=== PATIENT | male | born 1955 | race Caucasian/White ===

== ENCOUNTER 2017-08-09 07:56 | Outpatient (CLI) | payer BC ==
--- NOTE | ~2017-08-09 | HEMODYNAMI ---
PATIENT:VOLODYMYR VARGAS MEDICAL RECORD: [id number] : 59 LOCATION:[facility] ADMISSION DATE: 08/09/17 Generatedon:08/09/201710:22 Patient name: VOLODYMYR VARGAS Patient #: [id number] SSN: : 1955 Date of study: 08/09/2017 Page: Of Hemodynamic Procedure Report Patient Data Patient Demographics Procedure consent was obtained First Name: VOLODYMYR Gender: Male Last Name: ALICIA : 1955 Middle Initial: FERNANDA Age: 62 year(s) Patient #: [id number] Race: Additional ID: [id number] Contact details Address: [address] [place] [address] State: [place] City: [place] Zip code: [address] Past Medical History Allergies: No known allergies Admission Admission Data Admission Date: 08/09/2017 Admission Time: 7:56 Procedure Procedure Types Cath Procedure Diagnostic Procedure LHC LHC w/Coronaries PCI Procedure Coronary Stent Initial Coronary Stent Initial x2 Miscellaneous Procedures Moderate Sedation up to 30 minutes Procedure Description Procedure Date Procedure Date: 08/09/2017 Procedure Start Time: 9:58 Procedure End Time: 10:21 Procedure Staff Name Function Dm Vu MD Performing Physician Sue Ibarra RT Scrub Jett Alcaraz RN Nurse Titi Jim RT Monitor Abran Armstrong RN Nurse Procedure Data Cath Procedure Fluoroscopy Diagnostic fluoroscopy Total fluoroscopy Time: 5.5 time: 5.5 min min Diagnostic fluoroscopy Total fluoroscopy dose: dose: 2402 mGy 2402 mGy Contrast Material Contrast Material Type Amount (ml) Isovue 300 184 Entry Location Entry Primary Successful Side Size Upsize Upsize Entry Closure Fierro ccessful Closure Location (Fr) 1 (Fr) 2 (Fr) Remarks Device Remarks Radial Right 6 Fr Mechanical artery Short Compression Estimated blood loss: 10 ml Diagnostic catheters Device Type Used For End Catheter Placement Diagnostic Terumo 5Fr Procedure Boyle 110cm catheter Procedure Complications No complications Procedure Medications Medication Administration Route Dosage 0.9% NaCl I.V. 100 ml/hr Oxygen NC 2 l/min Heparin Flush Bag added to field 2 bags (1000units/500ml NS) Lidocaine 2% added to field 20 Versed I.V. 1 mg Fentanyl I.V. 50 mcg Fentanyl I.V. 50 mcg Radial Cocktail added to field 1 syringe (Verapomil 2mg/Nitro 400mcg/Heparin 1500units) Radial Cocktail I.A. 1 syringe (Verapomil 2mg/Nitro 400mcg/Heparin 1500units) Heparin Bolus I.V. 4000 units Integrilin (Bolus I.V. 11.7 ml 2mg/ml) Integrilin (Bolus wasted 8.3 ml 2mg/ml) Plavix P.O. 600 mg Hemodynamics Rest Heart Rate: 64 (bpm) Snapshots Pre Cath Intra NCS Post Cath Vital Signs Time Heart Resp SPO2 etCO2 NIBP (mmHg) Rhythm Pain Sedation Rate (ipm) (%) (mmHg) Status Level (bpm) 9:53:53 67 16 100 39.5 162/100(135) NSR 0 (11) 10(A) , No pain 9:58:42 70 15 100 40.3 156/99(126) NSR 0 (11) 10(A) , No pain 10:03:29 73 16 96 43.3 132/84(102) NSR 0 (11) 10(A) , No pain 10:08:11 74 16 96 36.6 145/92(116) NSR 0 (11) 10(A) , No pain 10:12:56 72 13 97 38.1 150/89(109) NSR 0 (11) 10(A) , No pain 10:17:41 69 15 99 41.8 150/81(105) NSR 0 (11) 10(A) , No pain Medications Time Medication Route Dose Verified Delivered Reason Note s Effectiveness by by 9:55:25 0.9% NaCl I.V. 100 Abran Abran Per physician ml/hr Nathaniel Armstrong RN RN 9:55:37 Oxygen NC 2 l/min Abran Abran Per physician Nathaniel Armstrong RN RN 9:55:55 Heparin Flush added 2 bags Abran Abran used for Bag to Nathaniel Armstrong procedure (1000units/500ml [facility] RN RN NS) 9:56:09 Lidocaine 2% added 20ml Abran Abran for local to vial Nathaniel Armstrong anesthetic field SAWANT RN 9:56:30 Versed I.V. 1 mg Abran Abran for sedation Nathaniel Armstrong RN RN 9:56:40 Fentanyl I.V. 50 mcg Abran Abran for sedation Nathaniel Armstrong RN RN 9:58:26 Fentanyl I.V. 50 mcg Abran Abran for sedation Nathaniel Armstrong RN RN 9:59:37 Radial Cocktail added 1 Abran Abran for (Verapomil to syringe Nathaniel Armstrong vasodilation 2mg/Nitro RN RN 400mcg/Heparin 1500units) 10:00:19 Radial Cocktail I.A. 1 Abran Dm for (Verapomil syringe Nathaniel Vu MD vasodilation 2mg/Nitro RN 400mcg/Heparin 1500units) 10:07:13 Heparin Bolus I.V. 4000 Abran Dm for units Nathaniel Vu MD anticoagulation RN 10:07:31 Integrilin I.V. 11.7 ml Abran Chaidez for (Bolus 2mg/ml) Nathaniel Vu MD antiplatelet RN therapy 10:07:56 Integrilin wasted 8.3 ml Abran Dm to sharp's (Bolus 2mg/ml) Nathaniel Vu MD RN 10:20:22 Plavix P.O. 600 mg Abran Chaidez for Nathaniel Vu MD antiplatelet RN therapy Procedure Log Time Note 9:32:19 Titi Jim RT(R) sent for patient. Start room use. 9:32:20 Time tracking: Regular hours 9:32:24 Plan of Care:Hemodynamics will remain stable., Cardiac rhythm will remain stable., Comfort level will be maintained., Respiratory function will remain adequate., Patient/ family verbilizes understanding of procedure., Procedure tolerated without complication., Recovers from procedure without complications.. 9:33:10 H&P Date Dictated: 08/05/2017 Within 30 days and on chart., H&P Addendum completed by physician on day of procedure. (MUST COMPLETE FOR ALL OUTPATIENTS). 9:41:16 Patient received from Pre/Post Procedure Room to CCL 1 Alert and oriented. Tansferred to table in Supine position. 9:41:18 Warm blankets applied, and karen hugger turned on for patient comfort. 9:41:18 Correct patient and procedure confirmed by team. 9:41:20 Signed procedure consent form obtained from patient. 9:41:21 ECG and BP/O2 sat monitors applied to patient. 9:52:50 Vital chart was started 9:52:51 Baseline sample Acquired. 9:52:55 Rhythm: sinus rhythm 9:52:57 Full Disclosure recording started 9:52:59 Pre-procedure instructions explained to patient. 9:53:00 Pre-op teaching completed and patient verbalized understanding. 9:53:02 Family in patients room. 9:53:03 Patient NPO since Midnight. 9:53:05 Is the patient allergic to Iodine/contrast media? No. 9:53:06 Is patient on blood thinner?No 9:53:08 Patient diabetic? No. 9:53:10 Previous problem with sedation/anesthesia? No ? 9:53:12 Snore? Yes 9:53:13 Sleep apnea? No 9:53:14 Deviated septum? No 9:53:15 Opens mouth fully? Yes 9:53:16 Sticks out tongue? Yes 9:53:18 Airway obstruction? No ? 9:53:22 Dentures? Yes partial in 9:53:36 Pre procedure: right dorsailis pedis pulse 1+ Palpable, but thready & weak; easily obliterated 9:53:38 Modified Bhavin's test Ulnar < 7 seconds 9:53:41 Patient pain scale 0/10 ?. 9:53:50 IV patent on arrival in left hand with 0.9% NaCl at O. 9:53:52 Lab results completed and on chart. 9:53:55 Right Radial & Right Groin area was prepped with chlora-prep and draped in sterile fashion 9:53:56 Alarms reviewed by R. N. 9:53:57 Sharps counted by scrub and verified by R.N. 9:54:29 --------ALL STOP TIME OUT------ 9:54:30 Final Timeout: patient, procedure, and site verified with staff and physician. All members of the team are in agreement. 9:54:32 Right Radial & Right Groin site verified by team. 9:54:36 Physical assessment completed. ASA score P 2 - A patient with mild systemic disease as per Dm Vu MD. 9:54:40 Sedation plan: IV Moderate Sedation Versed, Fentanyl 9:55:25 0.9% NaCl 100 ml/hr I.V. was administered by Abran Armstrong RN; Per physician; 9:55:27 Use device set Radial Dx 9:55:33 Acist Hand Control opened to sterile field. 9:55:33 Acist Manifold opened to sterile field. 9:55:33 Tegaderm 4 x 4 opened to sterile field. 9:55:35 Acist Syringe opened to sterile field. 9:55:35 Medline Cath Pack opened to sterile field. 9:55:36 Bag Decanter opened to sterile field. 9:55:36 Terumo 6Fr Slender Glidesheath opened to sterile field. 9:55:36 St Ike 260cm J .035 wire opened to sterile field. 9:55:37 Oxygen 2 l/min NC was administered by Abran Armstrong RN; Per physician; 9:55:37 MBrace Wrist Support opened to sterile field. 9:55:55 Heparin Flush Bag (1000units/500ml NS) 2 bags added to field was administered by Abran Armstrong RN; used for procedure; 9:56:09 Lidocaine 2% 20ml vial added to field was administered by Abran Armstrong RN; for local anesthetic; 9:56:30 Versed 1 mg I.V. was administered by Abran Armstrong RN; for sedation; 9:56:40 Fentanyl 50 mcg I.V. was administered by Abran Armstrong RN; for sedation; 9:58:11 Procedure started. 9:58:15 Local anesthetic to right radial artery with Lidocaine 2% by Dm Vu MD.INITIAL ACCESS ONLY 9:58:26 Fentanyl 50 mcg I.V. was administered by Abran Armstrong RN; for sedation; 9:59:37 Radial Cocktail (Verapomil 2mg/Nitro 400mcg/Heparin 1500units) 1 syringe added to field was administered by Abran Armstrong RN; for vasodilation; 9:59:40 A 6 Fr Short sheath was inserted into the Right Radial artery 9:59:53 A Diagnostic Terumo 5Fr Boyle 110cm catheter was advanced over the wire and used for Procedure. 10:00:19 Radial Cocktail (Verapomil 2mg/Nitro 400mcg/Heparin 1500units) 1 syringe I.A. was administered by Dm Vu MD; for vasodilation; 10:00:48 LV angiography performed. 10:00:49 LV gram done using AVALOS 10:00:54 EF : 55 % 10::07 Injector settings: Ml/sec: 7, Volume: 15, 10:01:23 LCA angiography performed. 10:04:14 RCA angiography performed. 10:04:15 Catheter removed. 10:04:29 Cordis 6FR XB 3.5 guide catheter opened to sterile field. 10:04:38 6 Fr XB 3.5 guide catheter was inserted over the wire 10:04:50 Merit BasixCompak Inflation Kit opened to sterile field. 10:04:51 GET Holding NV PT Graphix J 300cm 0.014 guide wire opened to sterile field. 10:05:17 Study PCI Site: [place] mLAD has 90% stenosis. 10:05:20 ACC Pre-intervention KAE Flow is 3. 10:06:36 Study PCI Site: [place] mCirc has 80% stenosis. 10:06:40 ACC Pre-intervention KAE Flow is 3. 10:07:04 PT Graphix wire advanced. 10:07:13 Heparin Bolus 4000 units I.V. was administered by Dm Vu MD; for anticoagulation; 10:07:27 Wire advanced across lesion. 10:07:31 Integrilin (Bolus 2mg/ml) 11.7 ml I.V. was administered by Dm Vu MD; for antiplatelet therapy; 10:07:41 Inflation Number: 1 A Dex OTW 3.0 x 15 stent was prepped and advanced across the Mid CX. The stent was deployed at 15 BETH for 0:10 (min:sec). 10:07:49 Inflation number: 2 The stent balloon was then re-inflated across the Mid CX to 15 BETH for 0:10 (min:sec). 10:07:56 Integrilin (Bolus 2mg/ml) 8.3 ml wasted was administered by Dm Vu MD; to sharp's; 10:08:00 Stent catheter was removed intact over wire. 10:09:18 Wire redirected to LAD. 10:09:43 Inflation Number: 1 A Elon OTW 4.0 x 12 stent was prepped and advanced across the Mid LAD. The stent was deployed at 15 BETH for 0:10 (min:sec). 10:10:31 Inflation number: 2 The stent balloon was then re-inflated across the Mid LAD to 15 BETH for 0:10 (min:sec). 10:11:43 Stent catheter was removed intact over wire. 10:11:52 Study PCI Site: [place] LMCA has 80% stenosis. 10:11:57 ACC Pre-intervention KAE Flow is 3. 10:13:27 Inflation Number: 1 A Dex OTW 4.0 x 08 stent was prepped and advanced across the LMCA. The stent was deployed at 17 BETH for 0:10 (min:sec). 10:14:10 Stent catheter was removed intact over wire. 10:14:11 Wire removed. 10:14:12 Guide catheter removed. 10:14:39 Terumo TR Band Standard opened to sterile field. 10:14:49 Sheath removed intact; hemostasis achieved with Mechanical Compression to the Right Radial artery. 10:14:51 Procedure ended.(Physican Out) 10:15:06 Fluoroscopy time 05.50 minutes. 10:15:10 Fluoroscopy dose: 2402 mGy 10:15:10 Flurop Dose total: 2402 10:15:16 Contrast amount:Isovue 300 184ml. 10:15:18 Sharps counted by scrub and verified by R.N. 10:15:19 Insertion/operative site no bleeding no hematoma. 10:15:27 TR band inflated with 12cc of air. 10:15:29 Post Procedure Pulses reassessed and unchanged 10:15:31 Post-procedure physical assessment completed. ASA score P 2 - A patient with mild systemic disease as per Dm Vu MD. 10:15:34 Post procedure rhythm: unchanged. 10:15:37 Estimated blood loss: 10 ml 10:15:38 Post procedure instruction explained to patient.Patient verbalizes understanding. 10:15:39 Patient needs reinforcement of post procedure teaching. 10:16:03 Procedure type changed to Cath procedure, Diagnostic procedure, LHC, LHC w/Coronaries, PCI procedure, Coronary Stent Initial, Coronary Stent Initial x2, Miscellaneous Procedures, Moderate Sedation up to 30 minutes 10:16:07 Procedure Complication : No complications 10:16:37 Procedure and supply charges have been captured, reviewed, submitted and are correct. 10:20:22 Plavix 600 mg P.O. was administered by Dm Vu MD; for antiplatelet therapy; 10:21:07 Vital chart was stopped 10:21:07 See physician's report for complete and final results. 10:21:09 Report given to Pre/Post Procedure Room. 10:21:13 Patient transfered to Pre/Post Procedure Room with Stretcher. 10:21:16 Procedure ended. 10:21:16 Full Disclosure recording stopped 10:21:40 End room use (Document Last) Intervention Summary Intervention Notes Time ActionType Lesion and Equipment Action# Pressure Duration Attributes Used 10:07:41 Place stent Mid CX Elon OTW 1 15 00:10 3.0 x 15 stent 10:07:49 Reinflate Mid CX Dex OTW 2 15 00:10 stent 3.0 x 15 balloon stent 10:09:43 Place stent Mid LAD Elon OTW 1 15 00:10 4.0 x 12 stent 10:10:31 Reinflate Mid LAD Dex OTW 2 15 00:10 stent 4.0 x 12 balloon stent 10:13:27 Place stent LMCA Dex OTW 1 17 00:10 4.0 x 08 stent Device Usage Item Name Manufacture Quantity Catalog Number Hospital Part Current Mini mal Lot# / Charge Number Stock Stock Serial# Code Acist Hand Acist 1 24531 168418 308573 705451 5 Control [employer] Inc Acist Acist 1 45983 957380 813146 943453 5 Manifold Medical [employer] Inc Tegaderm 4 3M 1 1626W 302804 142484 572189 5 x 4 Acist Acist 1 01792 649177 957780 689533 20 Syringe Medical Systems Inc Medline Cardinal 1 [id number] 330809 41345 311068 5 Cath Pack Health Bag Microtek 1 2001S 814277 35119 788229 5 Dada Inc. Terumo 6Fr Terumo 1 [id number] 058846 812040 819856 [address] Ike St Ike 1 869965 244102 200726 597164 30 260cm J .035 wire MBrace Advanced 1 140-0250-00 312501 18734 760064 5 Wrist Vascular Support Dynamics Diagnostic Terumo 1 47-9569 919071 179373 442382 5 Terumo 5Fr Boyle 110cm catheter Cordis 6FR Cardinal 1 [id number] 248296 042691 115624 2 XB 3.5 Health guide catheter [facility] Merit 1 [id number] 251018 747565 311578 15 BasixCompak Medical Inflation Kit Elon OTW Medtronic 1 [id number] 066821 040413 016147 5 [id number] 3.0 x 15 stent Elon OTW Medtronic 1 [id number] 826415 4495532 576047 5 [id number] 4.0 x 12 stent [place] Sci [place] 1 [id number] 345401 865410 908462 5 PT Mozidoix Medafor J 300cm 0.014 guide wire Dex OTW Medtronic 1 [id number] 755364 1575713 341572 5 [id number] 4.0 x 08 stent Terumo TR Terumo 1 [id number] 060744 471310 551177 40 Band Standard Signature Audit Guild Stage Time Signature Unsigned Intra-Procedure 08/09/2017 Titi Jim 10:22:20 AM RT(R) Signatures Monitor : Titi Jim RT Signature : Date : Time : [id number] [place] [address]
[~2017-08-09 07:56] MED LIST: ACETAMINOPHEN500 M1 PO; BAYER CHEWABLE81 MG PO; COREG25 MG PO; PLAVIX75 MG PO; PRINIVIL10 MG PO
[2017-08-09] MEDS ORDERED: HYDRALAZINE HCL25 MG PO (08:31)
[2017-08-09] MEDS ORDERED: ZOCOR10 MG PO (08:32)
[2017-08-09] MEDS ORDERED: VASOTEC20 MG PO (08:32)
[2017-08-09 08:42] VITALS: BP 159/88; BMI 37.3
[2017-08-09 09:03] LABS: BASOPHILS 0.3 % (0-2); EOSINOPHILS 2.5 % (0-7); HEMATOCRIT 40.4 % (42.0-54.0); HEMOGLOBIN 13.6 g/dL (13.5-17.5); IMMATURE GRANULOCYTES 0.2 % (0-5); LYMPHOCYTES 27.5 % (15-50); MCH 30.8 pg (26.0-34.0); MCHC 33.7 g/dL (31.0-37.0); MCV 91.6 fL (80.0-100.0); MEAN PLATELET VOLUME 10.2 fL (7.4-10.4); MONOCYTES 7.7 % (2-11); NEUTROPHILS 61.8 % (40-80); PLATELET COUNT 187 10x3/uL (130-400); RBC 4.41 10x6/uL (4.20-6.10); RDW 13.8 % (11.5-14.5); WBC 6.4 10x3/uL (4.8-10.8)
[2017-08-09 09:10] LABS: ANION GAP 13.4 mmol/L (8-16); CALCIUM 8.9 mg/dL (8.5-10.1); CARBON DIOXIDE 25.7 mmol/L (21.0-32.0); CREATININE - SERUM 1.4 mg/dL (0.6-1.3); POTASSIUM - SERUM 4.1 mmol/L (3.5-5.1)
[2017-08-09] MEDS ORDERED: PLAVIX75 MG PO (10:30)
--- NOTE | 2017-08-09 11:10 | NUR ---
PATIENT C/O NAUSEA. V/O FROM DR. VARELA FOR ZOFRAN 4MG IV. GIVEN PER ORDER AND WILL MONITOR FOR EFFECTIVENESS. DENIES CHEST PAIN, NO EKG CHANGES.
--- NOTE | 2017-08-09 11:32 | NUR ---
1115 SITTING UP EATING TURKEY SANDWICH AND SODA WITH NO NAUSEA. NO C/O CHEST PAIN. PULSES PALP X 4. R WRIST TR BAND C/D/I W NO HEMATOMA OR BLEEDING. FAMILY REMAINS AT BEDSIDE.
--- NOTE | 2017-08-09 13:20 | NUR ---
1215 RESTING WITH EYES CLOSED, ROOM AIR W NO RESP. DISTRESS. ALL VITALS WNL. R WRIST TR BAND C/D/I W NO HEMATOMA OR BLEEDING. FAMILY REMAINS AT SIDE. 1315 TAUTH AT BEDSIDE TO DISCUSS PROCEDURE FINDINGS. 2CC AIR REMOVED FROM R WRIST TR BAND. WILL MONITOR FOR BLEEDING.
--- NOTE | 2017-08-09 13:39 | NUR ---
2CC AIR REMOVED FROM R WRIST TR BAND. WILL CONTINUE TO MONITOR FOR BLEEDING.
--- NOTE | 2017-08-09 14:02 | NUR ---
PIV REMOVED FROM LEFT HAND WITH BANDAID APPLIED. ANOTHER 2CC REMOVED FROM R WRIST TR BAND. UP TO BEDSIDE TO DRESS WITH ASSIST FROM .
--- NOTE | 2017-08-09 14:19 | NUR ---
TR BAND WEANED, REMOVED...APPLIED TEGADERM AND 2X2 APPLIED. BRACE RE-APPLIED. D/C INSTRUCTIONS DISCUSSED WITH PATIENT AND AT BEDSIDE. WHEELED OUT VIA WHEELCHAIR BY CATH TEAM.
--- NOTE | 2017-08-10 16:42 | OP ---
PATIENT NAME: VOLODYMYR VARGAS MEDICAL RECORD: [id number] :59 LOCATION:D.CAT ADMISSION DATE: SURGEON: MARY VARELA MD DATE OF OPERATION: 08/09/2017 PROCEDURES: 1. PTCA stent left main. 2. PTCA stent left circumflex. 3. PTCA stent LAD. 4. Left heart catheterization. 5. Selective coronary angiography. 6. Left ventriculogram. INDICATION: Angina and coronary artery disease. PROCEDURE IN DETAIL: After informed consent was obtained and after a detailed explanation of the risks, benefits as well as alternative therapies, the patient elected to proceed with angiogram and angioplasty. The right radial area was prepped and draped in normal sterile fashion. The right radial artery was cannulated via modified Seldinger technique with placement of 6-Japanese sheath. All catheters exchanged through this sheath. FINDINGS: Left ventriculogram was performed in standard 30-degree AVALOS view, reveals preserved cardiac wall motion, ejection fraction 35%. SELECTIVE CORONARY ANGIOGRAPHY: 1. Right coronary artery is chronically totally occluded. Distal right coronary fills via right to right collaterals, unchanged from previous angiography. 2. The left main has 80% stenosis. 3. The left circumflex has 80% stenosis. 4. The left anterior descending has 80% stenosis. PTCA STENT OF THE LEFT MAIN, LAD, AND CIRCUMFLEX: The circumflex was addressed with a 3.0 x 15 mm Dex, LAD with a 4.0 x 12 mm Dex, and left main with a 4.0 x 8 mm Dex. Result was 0% residual throughout. OVERALL IMPRESSION: Successful percutaneous transluminal coronary angioplasty stent of the left main, LAD, and circumflex going from 80% initial stenosis to 0% residual. TRANSINT:[id number] Voice Confirmation ID: [id number] DOCUMENT ID: [id number] MARY VARELA MD at 1642 CC: [id number] DICTATION DATE: 08/09/17 1021 DRYER AND WASHER MECHANIC: 08/09/17 1211 DEP CLI 08/09/[address] [facility] [address] [id number]
== END 2017-08-09 14:23 | disposition home or self-care (01) ==
LOC: D.CATH 07:56
PROVIDERS: Internal Medicine Interventional Cardiology
DX: I25.119 Atherosclerotic heart disease of native coronary artery with unspecified angina pectoris (principal); R06.00 Dyspnea, unspecified; I10 Essential (primary) hypertension; Z01.812 Encounter for preprocedural laboratory examination

== ENCOUNTER → 2018-06-29 13:38 | Outpatient (CLI) | payer BC ==
[~2018-06-29 13:38] MED LIST changes: +GLUCOPHAGE500 MG PO; +HYDRALAZINE HCL25 MG PO; +PRINZIDE 20/12.1 TA1 PO; +VASOTEC20 MG PO; +ZOCOR10 MG PO; +ZOCOR20 MG PO
== END | disposition home or self-care (01) ==
LOC: D.CT 13:38
DX: R06.00 Dyspnea, unspecified (principal); R79.1 Abnormal coagulation profile

== ENCOUNTER 2018-07-01 08:07 | Outpatient (CLI) | payer BC ==
[~2018-07-01] VITALS: Ht 188 cm; Wt 131.8 kg
--- NOTE | ~2018-07-01 | OP ---
PATIENT NAME: VOLODYMYR VARGAS MEDICAL RECORD: [id number] :59 LOCATION:D.CAT ADMISSION DATE: SURGEON: MARY VARELA MD DATE OF OPERATION: 07/01/2018 PROCEDURES: 1. PTCA stent left circumflex. 2. PTCA, LAD. 3. Left heart catheterization. 4. Selective coronary angiography. 5. Left ventriculogram. INDICATION: Angina and coronary artery disease. PROCEDURE IN DETAIL: After informed consent was obtained and after a detailed description of risks, benefits as well as alternative therapies, the patient elected to proceed with angiogram and angioplasty. The right radial area was prepped and draped in normal sterile fashion. Right radial artery was cannulated via modified Seldinger technique with placement of 6-Vietnamese sheath. All catheters exchanged through this sheath. FINDINGS: The left ventriculogram was performed in standard 30-degree AVALOS view, reveals good cardiac wall motion throughout all segments. Overall ejection fraction estimated 60%. SELECTIVE CORONARY ANGIOGRAPHY: 1. Left main has previously placed stent. This is widely patent. 2. Left anterior descending has previously placed stents, these are widely patent. 3. The left circumflex has 80% stenosis at the ostium. 4. The right coronary artery has chronic total occlusion distally. Distal right coronary fills via left to right collaterals. PTCA STENT OF THE CIRCUMFLEX: The stent used was a 3.5 x 8 mm Cornucopia. This caused plaque shift into the LAD. The LAD was ballooned with a 3.5 balloon. Result was 0% residual throughout. OVERALL IMPRESSION: Successful percutaneous transluminal coronary angioplasty stent of the left circumflex going from 80% ostial stenosis to 0% residual stenosis. TRANSINT:[id number] Voice Confirmation ID: [id number] DOCUMENT ID: [id number] MARY VARELA MD at 1616 CC: [id number] DICTATION DATE: 07/01/18 1031 DIRECTOR CHANNEL: 07/01/18 1103 DEP CLI 07/01/[address] [address]
--- NOTE | ~2018-07-01 | EC ---
PATIENT:VOLODYMYR VARGAS DATE OF SERVICE: 07/01/18 SEX: M MEDICAL RECORD: [id number] DATE OF : 59 LOCATION:D.CAT AGE OF PATIENT: 63 ADMISSION DATE: 07/01/18 REFERRING PHYSICIAN: INTERPRETING PHYSICIAN: MARY VARELA MD ECHOCARDIOGRAM REPORT ECHO CHARGES Date: CLINICAL DIAGNOSIS: ECHOCARDIOGRAPHIC MEASUREMENTS (adult normal given) AC root (d.<3.7cm) cm LV Septum d (<1.2 cm> cm Valve Excursion cm LV Septum (systole) cm Left Atria (s.<4.0cm> cm LVPW d(<1.2cm) cm RV (d.<2.3cm) cm LVPW (sytole) cm LV diastole(<5.6CM) cm MV E-F(>70mm/sec) cm LV systole cm LVOT Diameter cm MV exc.(>10mm) cm Est.ejection fraction (50-75%) % DOPPLER: LVIT cm/sec A cm/sec E cm/sec LA cm/sec RVSP mmHg LVOT cm/sec AOP1/2T m/s Asc. Ao cm/sec RVOT cm/sec RA cm/sec PA cm/sec AV Gradient Peak mmHg AV Mean mmHg AV Area cm MV Gradient Peak mmHg MV Mean mmHg MV Area cm COMMENTS: Test Carrier: Gas Appliance Adjuster: STAN# Pericardial Effusion DATE OF SERVICE: PROCEDURE: Echocardiogram. FINDINGS: 1. Left ventricular chamber size is mildly dilated. Left ventricular systolic function is normal. Overall ejection fraction estimated at 55%. 2. Left atrium, right atrium, and right ventricle chamber sizes are within normal limits. 3. Valvular structures have normal structure and motion. ECHOCARDIOGRAM REPORT [id number] VOLODYMYR VARGAS 4. Doppler interrogation reveals only mild mitral regurgitation, no other valvular insufficiency or stenosis and pulmonary systolic pressure is normal estimated at 27 mmHg. 5. No evidence of pericardial effusion or left ventricular thrombus. TRANSINT:[id number] Voice Confirmation ID: [id number] DOCUMENT ID: [id number] MARY VARELA MD at 1616 CC: [id number] DICTATION DATE: 07/01/18 1158 RIGGING SUPERVISOR: 07/01/18 1159 DEP CLI 07/01/18 [address] [place] [address]
--- NOTE | ~2018-07-01 | HEMODYNAMI ---
PATIENT:VOLODYMYR VARGAS MEDICAL RECORD: [id number] : 59 LOCATION:[facility] ADMISSION DATE: 07/01/18 Generatedon:07/01/201810:30 Patient name: VOLODYMYR VARGAS Patient #: [id number] SSN: : 1955 Date of study: 07/01/2018 Page: Of Hemodynamic Procedure Report Patient Data Patient Demographics Procedure consent was obtained First Name: VOLODYMYR Gender: Male Last Name: ALICIA : 1955 [facility] Initial: FERNANDA Age: 63 year(s) Patient #: [id number] Race: Additional ID: [id number] Contact details Address: [place] [address] State: [place] City: [place] Zip code: [address] Past Medical History Allergies: No known allergies Admission Admission Data Admission Date: 07/01/2018 Admission Time: 8:07 Lab Results Lab Result Date: 07/01/2018 Lab Result Time: 0:00 Biochemistry Name Units Result Min Max BUN mg/dl 16 --(---*)-- 7 18 Creatinine mg/dl 1.4 --(----)*- 0.6 1.3 CBC Name Units Result Min Max Hemoglobin g/dl 12.8 -*(----)-- 13.5 17.5 Procedure Procedure Types Cath Procedure Diagnostic Procedure [facility] w/Coronaries PCI Procedure Coronary Stent Coronary Stent Initial PTCA PTCA Initial Procedure Description Procedure Date Procedure Date: 07/01/2018 Procedure Start Time: 10:09 Procedure End Time: 10:27 Procedure Staff Name Function Dm Vu MD Performing Physician Milagros Story RT Monitor Edna Hdz RT Scrub Ismael Harvey RN Nurse Procedure Data Cath Procedure Fluoroscopy Diagnostic fluoroscopy Total fluoroscopy Time: 4.7 time: 4.7 min min Diagnostic fluoroscopy Total fluoroscopy dose: dose: 1934 mGy 1934 mGy Contrast Material Contrast Material Type Amount (ml) Isovue 300 87 Entry Location Entry Primary Successful Side Size Upsize Upsize Entry Closure Fierro ccessful Closure Location (Fr) 1 (Fr) 2 (Fr) Remarks Device Remarks Radial Right 6 Fr Mechanical artery Short Compression Estimated blood loss: 5 ml Diagnostic catheters Device Type Used For End Catheter Placement DIAGNOSTIC Sutton 110cm 5 Multi-vessel Fr catheter ([id number]) Angiography Procedure Complications No complications Procedure Medications Medication Administration Route Dosage Oxygen etCO2 Nasal cannula 2 l/min Heparin Flush Bag added to field 2 bags (1000units/500ml NS) 0.9% NaCl I.V. 100 ml/hr Radial Cocktail added to field 1 syringe (Verapomil 2mg/Nitro 400mcg/Heparin 1500units) Fentanyl I.V. 50 mcg Versed I.V. 1 mg Fentanyl I.V. 50 mcg Versed I.V. 1 mg Radial Cocktail I.A. 1 syringe (Verapomil 2mg/Nitro 400mcg/Heparin 1500units) Heparin Bolus I.V. 4000 units Hemodynamics Rest HGB: 12.8 (g/dl) Heart Rate: 65 (bpm) Pressure Samples Time Site Value (mmHg) Purpose Heart Use Rate(bpm) 10:11 LV 119/24,23 Snapshot 99 Snapshots Pre Cath Intra NCS Post Cath Vital Signs Time Heart Resp SPO2 etCO2 NIBP (mmHg) Rhythm Pain Sedation Rate (ipm) (%) (mmHg) Status Level (bpm) 9:57:57 64 16 97 36.8 154/97(131) NSR 0 (11) 10(A) , No pain 10:02:15 65 16 100 36.8 154/98(133) NSR 0 (11) 10(A) , No pain 10:06:33 70 17 95 42.8 150/96(130) NSR 0 (11) 10(A) , No pain 10:10:53 67 16 94 36 143/88(118) NSR 0 (11) 10(A) , No pain 10:15:09 74 17 92 18 134/85(103) NSR 0 (11) 9(A) , No pain 10:19:20 72 17 94 36 133/88(107) NSR 0 (11) 9(A) , No pain 10:23:35 71 16 95 32.3 136/86(104) NSR 0 (11) 9(A) , No pain 10:27:48 72 17 97 41.3 133/83(113) NSR 0 (11) 9(A) , No pain Medications Time Medication Route Dose Verified Delivered Reason Not es Effectiveness by by 9:58:48 Oxygen etCO2 2 l/min Dm Guevara Per physician Nasal Mirella Harvey RN cannula 9:58:55 Heparin Flush added 2 bags Dm Guevara used for Bag to Mirella Harvey RN procedure (1000units/500ml field NS) 9:59:04 0.9% NaCl I.V. 100 Dm Guevara Per physician ml/hr Mirella Harvey RN 9:59:14 Radial Cocktail added 1 Dm Guevara used for (Verapomil to syringe Mirella Harvey RN procedure 2mg/Nitro field 400mcg/Heparin 1500units) 10:07:49 Fentanyl I.V. 50 mcg Dm Guevara for sedation Mirella Harvey RN 10:07:55 Versed I.V. 1 mg Dm Guevara for sedation Mirella Harvey RN 10:11:34 Fentanyl I.V. 50 mcg Dm Guevara for sedation Mirella Harvey RN 10:11:38 Versed I.V. 1 mg Dm Guevara for sedation Mirella Harvey RN 10:11:49 Radial Cocktail I.A. 1 Dm Chaidez for (Verapomil syringe Mirella Vu MD vasodilation 2mg/Nitro 400mcg/Heparin 1500units) 10:18:29 Heparin Bolus I.V. 4000 Dm Chaidez for units Mirella Vu MD anticoagulation Procedure Log Time Note 9:31:03 Ismael Harvey RN sent for patient. Start room use. 9:40:40 Informed consent obtained and on chart 9:40:50 Diagnostic Cath Status : Elective 9:41:04 Time tracking: Regular hours (M-F 7:00 - 5:00) 9:41:08 Plan of Care:Hemodynamics will remain stable., Cardiac rhythm will remain stable., Comfort level will be maintained., Respiratory function will remain adequate., Patient/ family verbilizes understanding of procedure., Procedure tolerated without complication., Recovers from procedure without complications.. 9:42:59 Lab Result : Hemoglobin 12.8 g/dl 9:42:59 Lab Result : Creatinine 1.4 mg/dl 9:42:59 Lab Result : BUN 16 mg/dl 9:48:56 Patient received from Pre/Post Procedure Room to CCL 2 Alert and oriented. Tansferred to table in Supine position. 9:48:57 Warm blankets applied, and karen hugger turned on for patient comfort. 9:48:58 Correct patient and procedure confirmed by team. 9:48:59 ECG and BP/O2 sat monitors applied to patient. 9:56:50 Vital chart was started 9:58:43 Baseline sample Acquired. 9:58:47 Rhythm: sinus rhythm 9:58:48 Oxygen 2 l/min etCO2 Nasal cannula was administered by Ismael Harvey RN; Per physician; 9:58:48 Full Disclosure recording started 9:58:52 H&P Date Dictated: 07/01/2018 Within 30 days and on chart., H&P Addendum completed by physician on day of procedure. (MUST COMPLETE FOR ALL OUTPATIENTS). 9:58:54 Pre-procedure instructions explained to patient. 9:58:54 Pre-op teaching completed and patient verbalized understanding. 9:58:55 Heparin Flush Bag (1000units/500ml NS) 2 bags added to field was administered by Ismael Harvey RN; used for procedure; 9:58:55 Family in waiting room. 9:59:04 0.9% NaCl 100 ml/hr I.V. was administered by Ismael Harvey RN; Per physician; 9:59:14 Radial Cocktail (Verapomil 2mg/Nitro 400mcg/Heparin 1500units) 1 syringe added to field was administered by Ismael Harvey RN; used for procedure; 9:59:42 Is the patient allergic to Iodine/contrast media? No. 9:59:43 Was the patient premedicated? No 9:59:44 Is patient on blood thinner?Yes 9:59:46 ACC The patient was administered the following blood thiners within the last 24 hours: ACCPlavix 9:59:48 Patient diabetic? Yes. 9:59:50 If diabetic: On Metformin? Yes 9:59:55 If on Metformin: Last Dose? 06/29/2018 9:59:57 Previous problem with sedation/anesthesia? No ? 9:59:59 Snore? Yes 10:00:00 Sleep apnea? No 10:00:01 Deviated septum? No 10:00:02 Opens mouth fully? Yes 10:00:03 Sticks out tongue? Yes 10:00:04 Airway obstruction? No ? 10:00:17 Dentures? Yes partials in tight upper 10:00:21 Pre procedure: right dorsailis pedis pulse 2+ Normal; easily identifiable; not easily obliterated 10:00:22 Pre procedure: left dorsailis pedis pulse 2+ Normal; easily identifiable; not easily obliterated 10:00:24 Patient pain scale 0/10 ?. 10:00:29 IV patent on arrival in left forearm with 0.9% NaCl at [facility]. 10:00:31 Lab results completed and on chart. 10:00:35 Right Radial & Right Groin area was prepped with chlora-prep and draped in sterile fashion 10:00:36 Alarms reviewed by R. N. 10:00:37 Sharps counted by scrub and verified by R.N. 10:00:39 Physician arrived 10:00:39 --------ALL STOP TIME OUT------ 10:00:39 Final Timeout: patient, procedure, and site verified with staff and physician. All members of the team are in agreement. 10:00:41 Right Radial & Right Groin site verified by team. 10:00:44 Physical assessment completed. ASA score P 2 - A patient with mild systemic disease as per Dm Vu MD. 10:00:48 Sedation plan: IV Moderate Sedation Medication:Versed, Fentanyl 10:00:59 Use device set Radial Dx or PCI 10:01:00 ACIST Syringe (28601) opened to sterile field. 10:01:01 Medline Cath Pack ([id number]) opened to sterile field. 10:01:01 Bag Decanter (2002) opened to sterile field. 10:01:02 DIAGNOSTIC WIRE .035 260cm J wire (062303) opened to sterile field. 10:01:02 ACIST Hand Control (63634) opened to sterile field. 10:01:02 ACIST Manifold (22693) opened to sterile field. 10:01:03 Tegaderm 4 x 4 (1626W) opened to sterile field. 10:01:04 MBrace Wrist Support ([id number]) opened to sterile field. 10:01:05 SHEATH 6Fr Prelude Radial ([id number]) opened to sterile field. 10:06:15 Zero performed for pressure channel P1 10:07:49 Fentanyl 50 mcg I.V. was administered by Ismael Harvey RN; for sedation; 10:07:55 Versed 1 mg I.V. was administered by Ismael Harvey RN; for sedation; 10:08:56 Procedure started. 10:09:08 Local anesthetic to right radial artery with Lidocaine 2% by Dm Vu MD.INITIAL ACCESS ONLY 10:10:07 A 6 Fr Short sheath was inserted into the Right Radial artery 10:10:18 A DIAGNOSTIC Sutton 110cm 5 Fr catheter (230855) was advanced over the wire and used for Multi-vessel Angiography. 10:11:34 Fentanyl 50 mcg I.V. was administered by Ismael Harvey RN; for sedation; 10:11:38 Versed 1 mg I.V. was administered by Ismael Harvey RN; for sedation; 10:11:46 LV hemodynamics recorded. 10:11:47 LV gram done using AVALOS 10:11:49 Radial Cocktail (Verapomil 2mg/Nitro 400mcg/Heparin 1500units) 1 syringe I.A. was administered by Dm Vu MD; for vasodilation; 10:11:50 Injector settings: Ml/sec: 5, Volume: 15, 10:12:12 EF : 60 % 10:12:24 LCA angiography performed. 10:12:27 Injector settings: Ml/sec: 3, Volume: 6, 10:14:20 RCA angiography performed. 10:14:23 Injector settings: Ml/sec: 3, Volume: 6, 10:14:46 Catheter removed. 10:14:47 Proceeding to intervention. 10:15:02 GUIDE 6FR XBLAD 3.5 catheter ([id number]) opened to sterile field. 10:15:02 INFLATOR Merit BasixCompak (NM5501) opened to sterile field. 10:16:50 CHOICE PT Extra Support 182cm wire ([id number]) opened to sterile field. 10:16:50 CHOICE PT Extra Support 182cm wire ([id number]) opened to sterile field. 10:17:01 6 Fr xblad 3.5 guide catheter was inserted over the wire 10:17:06 choice pt wire advanced. 10:17:21 first wire down lad 10:18:18 choice pt wire advanced. 10:18:29 Heparin Bolus 4000 units I.V. was administered by Dm Vu MD; for anticoagulation; 10:18:36 second wire advanced down the LCX 10:19:26 Inflate balloon Inflation number: 1 A EUPHORA 3.5 x 15 Balloon ([id number]) was prepped and advanced across the Prox CX, then inflated to 15 BETH for 0:10 (min:sec). 10:20:30 Balloon removed over the wire. 10:22:27 Place stent Inflation Number: 2 A MICHAEL RX 3.5 x 08 stent ([id number]) was prepped and advanced across the Prox CX. The stent was deployed at 13 BETH for 0:10 (min:sec). 10:22:47 Stent catheter was removed intact over wire. 10:23:02 wire removed from LCX 10:24:25 Inflation number: 1 The EUPHORA 3.5 x 15 Balloon ([id number]) was reinflated across the Prox LAD, to 17 BETH for 0:10 (min:sec). 10:24:56 Balloon removed over the wire. 10:24:58 Wire removed. 10:24:59 Guide catheter removed. 10:25:27 Sheath removed intact; hemostasis achieved with Mechanical Compression to the Right Radial artery. 10:25:31 TR BAND Large ([id number]) opened to sterile field. 10:25:36 Procedure ended.(Physican Out) 10:26:11 Fluoroscopy time 04.70 minutes. 10:26:15 Flurop Dose total: 1934 10:26:15 Fluoroscopy dose: 1934 mGy 10:26:24 Contrast amount:Isovue 300 87ml. 10:26:31 Sharps counted by scrub and verified by R.N. 10:26:37 TR band inflated with 10cc of air. 10:26:39 Insertion/operative site no bleeding no hematoma. 10:26:44 Post right radial artery:stable 10:26:45 Post Procedure Pulses reassessed and unchanged 10:26:48 Post procedure rhythm: unchanged. 10:26:51 Estimated blood loss: 5 ml 10:26:52 Post procedure instruction explained to patient.Patient verbalizes understanding. 10::53 Patient needs reinforcement of post procedure teaching. 10:27:20 Procedure type changed to Cath procedure, Diagnostic procedure, LHC, LHC w/Coronaries, PCI procedure, Coronary Stent, Coronary Stent Initial, PTCA, PTCA Initial 10:27:22 Procedure and supply charges have been captured, reviewed, submitted and are correct. 10::26 Procedure Complication : No complications 10:27:28 Vital chart was stopped 10::28 See physician's report for complete and final results. 10::34 Report given to Pre/Post Procedure Room. 10::37 Patient transfered to Pre/Post Procedure Room with Stretcher. 10:27:40 Procedure ended. 10:27:40 Full Disclosure recording stopped 10:27:49 ACC-PCI Only Patient was given prescriptions, or instructed by Dm Vu MD to start/continue the following medications upon discharge: Plavix 10:27:50 End room use (Document Last) Intervention Summary Intervention Notes Time ActionType Lesion and Equipment Used Action# Pressure Duration Attributes 10:19:26 Inflate Prox CX EUPHORA 3.5 x 1 15 00:10 balloon 15 Balloon ([id number]) 10:22:27 Place stent Prox CX MICAHEL RX 3.5 x 2 13 00:10 08 stent ([id number]) 10:24:25 Reinflate Prox LAD EUPHORA 3.5 x 1 17 00:10 balloon 15 Balloon ([id number]) Device Usage Item Name Manufacture Quantity Catalog Number Hospital Part Current Minimal Lot# / Charge Number Stock Stock Serial# Code ACIST Syringe Acist 1 83756 948487 960681 [id number] 20 (51487) [employer] Medline Cath Cardinal 1 [id number] 305[address] [facility] ([id number]) Bag Decanter Microtek 1 280549 16309 400785 5 () Medical Inc. DIAGNOSTIC WIRE St Ike 1 057376 133708 685528 804553 30 .035 260cm J wire (005856) ACIST Hand Acist 1 74510 468995 097848 183947 5 Control (20714) [employer] ACIST Manifold Acist 1 76876 363166 229044 384403 5 (88399) [employer] Tegaderm 4 x 4 3M 1 1626W 546196 735659 226605 5 (1626W) MBrace Wrist Advanced 1 140-0250-00 975021 21004 202915 5 Support Vascular ([id number]) Dynamics SHEATH 6Fr Merit 1 [id number] 190300 935665 223735 5 Prelude Radial Medical ([id number]) DIAGNOSTIC Terumo 1 40-9843 226690 316926 472483 5 Sutton 110cm 5 Fr catheter (965839) GUIDE 6FR XBLAD Cardinal 1 [id number] 518964 625037 509154 10 3.5 catheter Health ([id number]) INFLATOR Merit Merit 1 [id number] 715584 422439 788562 15 Kubi [employer] ([id number]) CHOICE PT Extra Argyle 2 [id number] 503464 738006 257875 5 Support 182cm Scientific wire ([id number]) EUPHORA 3.5 x Medtronic 1 [id number] 553658 017910 084619 5 [id number] 15 Balloon ([id number]) MICHAEL RX 3.5 x Medtronic 1 [id number] 731723 5020816 916786 5 [id number] 08 stent ([id number]) TR BAND Large Terumo 1 [id number] 017517 443318 482302 40 ([id number]) Signature Audit [place] Stage Time Signature Unsigned Intra-Procedure 07/01/2018 Milagros Story 10:30:18 AM RT(R) Signatures Monitor : Milagros Story RT Signature : Date : Time : [facility] [address] [place] [address]
[~2018-07-01 08:07] MED LIST changes: -GLUCOPHAGE500 MG PO; -PRINZIDE 20/12.1 TA1 PO; -ZOCOR20 MG PO
[2018-07-01] MEDS ORDERED: GLUCOPHAGE500 MG PO (08:32)
[2018-07-01] MEDS ORDERED: PRINZIDE 20/12.1 TA1 PO (08:32)
[2018-07-01] MEDS ORDERED: ZOCOR20 MG PO (08:32)
[2018-07-01 08:50] VITALS: BP 143/90; Ht 188 cm; Wt 131.8 kg
[2018-07-01 09:02] LABS: BASOPHILS 0.3 % (0-2); EOSINOPHILS 2.4 % (0-7); HEMATOCRIT 37.4 % (42.0-54.0); HEMOGLOBIN 12.8 g/dL (13.5-17.5); IMMATURE GRANULOCYTES 0.2 % (0-5); LYMPHOCYTES 28.7 % (15-50); MCH 30.8 pg (26.0-34.0); MCHC 34.2 g/dL (31.0-37.0); MCV 89.9 fL (80.0-100.0); MEAN PLATELET VOLUME 9.9 fL (7.4-10.4); MONOCYTES 9.8 % (2-11); NEUTROPHILS 58.6 % (40-80); PLATELET COUNT 184 10x3/uL (130-400); RBC 4.16 10x6/uL (4.20-6.10); RDW 13.5 % (11.5-14.5); WBC 5.9 10x3/uL (4.8-10.8)
[2018-07-01 09:16] LABS: ANION GAP 13.4 mmol/L (8-16); CALCIUM 8.2 mg/dL (8.5-10.1); CARBON DIOXIDE 26.8 mmol/L (21.0-32.0); CREATININE - SERUM 1.4 mg/dL (0.6-1.3); POTASSIUM - SERUM 4.2 mmol/L (3.5-5.1)
== END 2018-07-01 14:52 | disposition home or self-care (01) ==
LOC: D.CATH 08:07 → D.ECHO 09:30 → D.CATH 09:30
PROVIDERS: Internal Medicine Interventional Cardiology
DX: I25.119 Atherosclerotic heart disease of native coronary artery with unspecified angina pectoris (principal); I25.82 Chronic total occlusion of coronary artery; Z01.812 Encounter for preprocedural laboratory examination